=== PATIENT | female | born 1945 | race Caucasian/White ===

== ENCOUNTER 2020-05-05 15:34 | Emergency (ER) | payer OTHER, MEDICAID ==
[~2020-05-05] VITALS: Ht 147.3 cm; Wt 58.1 kg
[2020-05-05 15:39] VITALS: BP 121/68
[2020-05-05] MEDS ORDERED: KETOROLAC 60 MG/2 ML VIAL IM ONE (15:50)
[2020-05-05] MEDS ORDERED: methocarbamoL 500 MG TAB PO SCH (15:50)
--- NOTE | 2020-05-05 16:07 | NUR ---
74 YEAR OLD FEMALE COMPLAINS OF LEFT SHOULDER PAIN AFTER TRYING TO MOVE AN OBJECT THAT WAS HEAVY. NO SENSATION LOST, RADIAL PULSE +2, CAP REFILL < 3 SEC. PT HAS RANGE OF MOTION. PT AOX4, BREATHING EVEN AND UNLABORED, SKIN WARM AND DRY. BED IN LOWEST POSITION, LOCKED, BED RAIL UPX1. PMH - DM2 ALLERGIES - NKA
== END 2020-05-05 16:15 | disposition home or self-care (01) ==
LOC: MED 15:34
DX: M54.6 Pain in thoracic spine (principal); M25.511 Pain in right shoulder; E11.9 Type 2 diabetes mellitus without complications
CPT/HCPCS: 96372; 99283; J1885